=== PATIENT | female | born 1990 | race African-American/Black ===

== ENCOUNTER 2016-10-27 09:42 | Emergency (ER) | payer SELFPAY ==
[~2016-10-27] VITALS: Ht 154.9 cm; Wt 85.0 kg
[2016-10-27 09:45] VITALS: BP 122/68; PULSE 88; RESP 16; TEMP 98.2; O2SAT 98
== END 2016-10-27 11:08 | disposition left against medical advice (07) ==
LOC: NED 09:42
DX: R10.9 Unspecified abdominal pain (principal)
CPT/HCPCS: 99281